=== PATIENT | female | born 1995 | race American Indian/Alaskan Native ===

== ENCOUNTER 2018-10-14 00:21 | Emergency (ER) | payer OTHER ==
[2018-10-14 00:51] VITALS: BP 120/82
[2018-10-14 01:58] LABS: HCG Qualitative,Urine Negative (Negative)
[2018-10-14 02:08] LABS: Bilirubin,Urine NEG (Negative); Blood,Urine NEG (Negative); Color,Urine Yellow (Yellow); Mucus,Urine 3+ /HPF
--- NOTE | 2018-10-14 05:25 | Emergency Department Report ---
ED Abdominal Pain HPI - General Chief Complaint: Abdominal Pain Stated Complaint: ABD PAIN Time Seen by Provider: 10/14/18 05:12 Source: patient Mode of arrival: Ambulatory Limitations: No Limitations - History of Present Illness MD Complaint: abdominal pain -: days(s) (4) Location: periumbilical Severity scale (0 -10): 6 - Related Data Previous Rx's Medication Instructions Recorded Last Taken Type Fluconazole [Diflucan TAB] 150 mg PO ONCE #2 tablet 04/16/15 Unknown Rx Miconazole 2% [Monistat-Derm] 1 applicatio TP BID #1 tube 04/16/15 Unknown Rx Sulfamethoxazole/Trimethoprim 1 each PO BID #14 tablet 04/16/15 Unknown Rx [Bactrim DS TAB] Allergies Allergy/AdvReac Type Severity Reaction Status Date / Time No Known Allergies Allergy Unverified 04/16/15 14:40 ED Review of Systems ROS: Stated complaint: ABD PAIN Other details as noted in HPI ED Past Medical Hx - Past Medical History Previous Medical History?: Yes Additional medical history: Seasonal Allergies - Surgical History Past Surgical History?: No - Social History Smoking Status: Never Smoker Substance Use Type: None - Medications Home Medications: Home Medications Medication Instructions Recorded Confirmed Last Taken Type Fluconazole [Diflucan TAB] 150 mg PO ONCE #2 tablet 04/16/15 Unknown Rx Miconazole 2% [Monistat-Derm] 1 applicatio TP BID #1 tube 04/16/15 Unknown Rx Sulfamethoxazole/Trimethoprim 1 each PO BID #14 tablet 04/16/15 Unknown Rx [Bactrim DS TAB] ED Physical Exam - General Limitations: No Limitations General appearance: alert, in no apparent distress - Head Head exam: Present: atraumatic, normocephalic - Eye Eye exam: Present: normal appearance - ENT ENT exam: Present: mucous membranes moist - Neck Neck exam: Present: normal inspection - Respiratory Respiratory exam: Present: normal lung sounds bilaterally. Absent: respiratory distress - Cardiovascular Cardiovascular Exam: Present: regular rate, normal rhythm. Absent: systolic murmur, diastolic murmur, rubs, gallop - GI/Abdominal GI/Abdominal exam: Present: soft, tenderness (umbilicus) - Extremities Exam Extremities exam: Present: normal inspection, full ROM - Back Exam Back exam: Present: normal inspection - Neurological Exam Neurological exam: Present: alert, oriented X3 - Psychiatric Psychiatric exam: Present: normal affect, normal mood ED Course Vital Signs 10/14/18 00:48 Temperature 98.7 F Pulse Rate 84 Respiratory 18 Rate Blood Pressure 120/82 O2 Sat by Pulse 99 Oximetry ED Medical Decision Making - Medical Decision Making Patient was evaluated by this provider in [facility]. Patient was ordered a CT with contrast and CBC and CMP. Patient refuses workup states that she has been given ibuprofen 800 mg in the past and she was expecting to get that. Patient also requesting a work excuse. I discussed the patient that she could've taken ibuprofen [id number] and since she is here to be evaluated for abdominal pain that is located in umbilicus that I feel that she needs a workup sitter and the medication she wanted she could've taken [id number]. He isn't also states she has to take her little brother to school. Patient decided to sign out AMA. Critical care attestation.: If time is entered above; I have spent that time in minutes in the direct care of this critically ill patient, excluding procedure time. ED Disposition Clinical Impression: Abdominal pain Disposition: DC-07 LEFT AGAINST MED ADVICE Is pt being admited?: No Does the pt Need Aspirin: No Condition: Stable Instructions: Abdominal Pain (ED) Referrals: PRIMARY CARE, [Primary Care Provider] - 3-5 Days Forms: AMA Form, Work/School Release Form(ED)
== END 2018-10-14 05:38 | disposition left against medical advice (07) ==
LOC: ED 00:21
DX: R10.33 Periumbilical pain (principal)
CPT/HCPCS: 81001; 81025; 99283

== ENCOUNTER 2021-12-11 23:19 | Emergency (ER) | payer MEDICAID, OTHER ==
[2021-12-11 23:57] VITALS: BP 145/74
== END 2021-12-12 01:00 | disposition left against medical advice (07) ==
LOC: ED 23:19
DX: L02.32 Furuncle of buttock (principal); Z53.21 Procedure and treatment not carried out due to patient leaving prior to being seen by health care provider